=== PATIENT | male | born 1955 ===

== ENCOUNTER 2018-07-04 13:21 | Inpatient (IN) | payer BC, MEDICAID ==
--- NOTE | 2018-07-04 14:31 | ED PDOC ---
Arrival/HPI - General Chief Complaint: Flu-like Symptoms Time Seen by Provider: 07/04/18 14:20 Historian: Patient, Family - History of Present Illness Narrative History of Present Illness (Text): 07/04/18 14:30 63 year old Malaysian-speaking male, with past medical history of CVA, hypertension, diabetes, and bilateral AKA, presents to the Emergency department accompanied by family for evaluation of flu-like symptoms since 3 days. As per family, patient informs sore throat, cough, congestion and fever since 3 days. Patient had a Tmax of 101.2 last night and developed difficulty breathing secondary to congestion this morning, prompting him to present to the ED for medical evaluation. Patient denies any other associated somatic complaints. Patient denies any headache, dizziness, chest pain, dyspnea on exertion, abdominal pain, nausea, vomiting, diarrhea, back pain, neck pain, or any other complaints. Time/Duration: < week Symptom Onset: Gradual Symptom Course: Unchanged Activities at Onset: Light Context: Home Past Medical History - Provider Review Nursing Documentation Reviewed: Yes - Cardiac Hx Hypertension: Yes - Endocrine/Metabolic Hx Diabetes Mellitus Type 2: Yes - Psychiatric Hx Substance Use: No - Surgical History Other/Comment: B/L AKA - Anesthesia Hx Anesthesia: Yes Hx Anesthesia Reactions: No Hx Malignant Hyperthermia: No Family/Social History - Physician Review Nursing Documentation Reviewed: Yes Family/Social History: Unknown Family HX Smoking Status: Never Smoked Hx Alcohol Use: No Hx Substance Use: No Allergies/Home Meds Allergies/Adverse Reactions: Allergies No Known Allergies Allergy (Verified 07/04/18 14:04) Home Medications: Home Meds Medication Instructions Recorded Confirmed Aspirin [Aspirin EC] DAILY 07/04/18 Clonazepam [Klonopin] DAILY 07/04/18 Lisinopril [Zestril] DAILY 07/04/18 Metoprolol Succinate DAILY 07/04/18 metFORMIN [glucOPHAGE] BID 07/04/18 07/04/18 Review of Systems - Physician Review All systems were reviewed & negative as marked: Yes - Review of Systems Constitutional: Fevers Eyes: absent: Vision Changes ENT: Sore Throat Respiratory: Cough. absent: SOB Cardiovascular: absent: Chest Pain Gastrointestinal: absent: Abdominal Pain, Diarrhea, Nausea, Vomiting Genitourinary Male: absent: Dysuria, Urinary Output Changes Musculoskeletal: absent: Back Pain, Neck Pain Skin: absent: Rash Neurological: absent: Headache, Dizziness Physical Exam - Physical Exam Narrative Physical Exam (Text): 07/04/18 14:36 Gen: VS reviewed, alert, well developed, well nourished, nontoxic, mild distress. ENT: normal pharynx. Post nasal drip, boggy nasal remnants noted. Eye: EOMI, PERRL. Neck: no JVD, supple, no adenopathy. CV: regular rate, regular rhythm, no rubs, no murmur, no gallops, S1, S2, pulses equal and strong. Pulm: no distress, clear to auscultation, no wheeze, no rhonchi, breath sounds equal, no rales. Abd: soft, nontender, no guarding, no rebound, no rigidity, normal bowel sounds. Ext: Bilateral AKA. Skin: good color, no rash, no cyanosis. Psych: responds appropriately to questions, normal affect. Neuro: oriented x 3, CN2-12 intact grossly, motor intact, sensation intact. Vital Signs Reviewed: Yes Vital Signs Temp Pulse Resp BP Pulse Ox 07/04/18 14:07 97.3 F L 105 H 16 129/79 95 Temperature: Afebrile Blood Pressure: Normal Pulse: Tachycardic Respiratory Rate: Normal Appearance: Positive for: Well-Appearing, Non-Toxic, Comfortable Pain Distress: None Mental Status: Positive for: Alert and Oriented X 3 Medical Decision Making ED Course and Treatment: 07/04/18 14:37 Impression: 63 year old male presents to the Emergency department for evaluation of flu-like symptoms. Plan: -- Rapid Strep -- Rapid Influenza A/B -- Chest X-ray -- Reassess and disposition Prior Visits: Notes and results from previous visits were reviewed. Progress Notes: 07/04/18 16:56 Chest X-ray reviewed, shows: Impression: Intermittent findings proximal right humerus follow-up recommended. discussed with regarding incidental humerus finding, will refer to ortho.primarily patient was seen for uri symptoms, sore throat, fever, despite negative cxr i feel it is prudent to start empiric antibiotics. patient is nontoxic appearing and stable for dc. 07/04/18 17:50 at discharge, the patient's vitals noted to be febrile and tachycardic. further information provided by the family states that the patient will regularly hold his urine. the patient admit to some dysuria but no flank pain or hematuria. will extend workup to get cultures and admit. 07/04/18 17:[address] lima, patient to be admitted to rule out sepsis. 07/04/18 18:51 code sepsis called, patient with atypical presentation, found to have a high wbc and elevated lactic acid, patient empirically started on iv abx - RAD Interpretation Radiology Orders: 07/04/18 14:29 CXR [CHEST TWO VIEWS (PA/LAT)] [RAD] Stat - EKG Interpretation EKG Interpretation (Text): 07/04/18 17:03 1646: nsr at 100 bpm, rbbb, no ectopy, no acute sttw abn Interpreted by ED Physician: Yes Procedures - Time-Out Type of Procedure: venipuncture necessitiating physician skill - Additional Procedures Progress: 20 g iv was placed in the left AC, ultrasound guided, blood drawn by myself including cultures, good flush with sterile saline, tolerated procedure well. - Scribe Statement The provider has reviewed the documentation as recorded by the Scribe America Coreas. All medical record entries made by the Scribe were at my direction and personally dictated by me. I have reviewed the chart and agree that the record accurately reflects my personal performance of the history, physical exam, medical decision making, and the department course for this patient. I have also personally directed, reviewed, and agree with the discharge instructions and disposition. Disposition/Present on Arrival - Present on Arrival Any Indicators Present on Arrival: No History of DVT/PE: No History of Uncontrolled Diabetes: No Urinary Catheter: No History of Decub. Ulcer: No History Surgical Site Infection Following: None - Disposition Have Diagnosis and Disposition been Completed?: Yes Diagnosis: Upper respiratory infection Disposition: HOME/ ROUTINE Disposition Time: 16:57 Patient Plan: Discharge Patient Problems: Current Active Problems Problem Status Onset Upper respiratory infection Acute Condition: STABLE Discharge Instructions (ExitCare): Bacterial Upper Respiratory Infection, Adult Additional Instructions: Stay well hydrated (water). Return for any new or worsening symptoms. SHAHRZAD WERNER, thank you for letting us take care of you today. Your provider was Dr. Nicola Loving and you were treated for upper respiratory infection. The emergency medical care you received today was directed at your acute symptoms. If you were prescribed any medication, please fill it and take as directed. It may take several days for your symptoms to resolve. Return to the Emergency Department if your symptoms worsen, do not improve, or if you have any other problems. Please contact your doctor or call one of the physicians/clinics you have been referred to that are listed on the Patient Visit Information form that is included in your discharge packet. Bring any paperwork you were given at discharge with you along with any medications you are taking to your follow up visit. Our treatment cannot replace ongoing medical care by a primary care provider outside of the emergency department. Thank you for allowing the [facility] team to be part of your care today. If you had an X-Ray or CT scan: A Radiologist will review the ED reading if any change in treatment is needed we will contact you. If you had a blood, urine, or wound culture: It will take several days for the results, if any change in treatment is needed we will contact you. If you had an STI test: It will take 48 hours for the results. Please call after 1 week if you have not heard back. Prescriptions: Azithromycin 250 mg PO DAILY 4 Days #4 tablet Lisinopril [Zestril] 10 mg PO DAILY 30 Days #30 tablet Referrals: [facility] [Outside] - Follow up with primary Aaron Larsen DO [Staff Provider] - Follow up with primary Forms: [employer] (Turkmen)
--- NOTE | 2018-07-04 16:25 | RAD ---
Date of service: 07/04/2018 HISTORY: cough, pneumonia COMPARISON: No prior. TECHNIQUE: Chest PA and lateral FINDINGS: LUNGS: No active pulmonary disease. PLEURA: No significant pleural effusion identified. No pneumothorax apparent. CARDIOVASCULAR: No aortic atherosclerotic calcification present. Normal cardiac size. No pulmonary vascular congestion. OSSEOUS STRUCTURES: Incompletely visualize calcium/osseous matrix proximal right humerus. Findings are nonspecific may represent calcified matrix, chondroid lesion. Bony infarction could also assume this appearance. Further evaluation recommended as there are no prior studies. VISUALIZED UPPER ABDOMEN: Normal. OTHER FINDINGS: None. IMPRESSION: No active pulmonary disease. Intermittent findings proximal right humerus follow-up recommended.
[2018-07-04 18:37] LABS: BASO # 0.05 K/mm3 (0.0-2.0); BASO % 0.2 % (0.0-3.0); EOS # 0.1 (0.0-0.7); EOS % 0.3 % (1.5-5.0); GRAN # 15.75 (1.4-6.5); GRAN % 72.4 % (50.0-68.0); HEMOGLOBIN 12.1 g/dL (14.0-18.0); LYMPH % 18.5 % (22.0-35.0); MEAN CELL VOLUME 92.1 fl (80.0-105.0); MEAN CORPUSCULAR HGB CONC 32.6 g/dl (31.0-37.0); MEAN PLATELET VOLUME 10.5 fl (7.0-11.0); MONO # 1.9 (0.1-0.6); MONO % 8.6 % (1.0-6.0); RBC 4.03 10^6/uL (3.5-6.1); RED CELL DISTRIBUTION WIDTH 13.1 % (11.5-14.5); WHITE BLOOD COUNT 21.8 10^3/uL (4.5-11.0)
[2018-07-04 18:40] LABS: VENOUS BLOOD GAS BASE EXCESS 3.4 mmol/L (0.0-2.0); VENOUS BLOOD GAS PO2 37 mm/Hg (30-55); VENOUS BLOOD PH 7.38 (7.32-7.43)
[2018-07-04] MEDS ORDERED: Aztreonam 1 Gm in NS 100mL 100 ML IVPB STA (18:47)
[2018-07-04] MEDS ORDERED: Vancomycin 500 mg Inj IVPB STA (18:49)
[2018-07-04 18:52] LABS: ALB/GLOB RATIO 0.9 (1.1-1.8); ALBUMIN 4.3 g/dL (3.0-4.8); ALT/SGPT 25 U/L (7-56); AST/SGOT 22 U/L (17-59); BLOOD UREA NITROGEN 10 mg/dL (7-21); CALCIUM 9.6 mg/dL (8.4-10.5); GFR NON-AFRICAN AMERICAN > 60
--- NOTE | 2018-07-04 18:58 | CARD ---
APPROVED REPORT Date of service: 07/04/2018 EKG Measurement Heart [id number] <Conclusion> Normal sinus rhythm Right bundle branch block Left anterior fascicular block Bifascicular block Abnormal ECG
[2018-07-04 20:11] LABS: PH,URINE 6.5 (4.7-8.0); URINE BILIRUBIN NEGATIVE (NEGATIVE); URINE BLOOD NEGATIVE (NEGATIVE); URINE GLUCOSE (UA) NEGATIVE (NEGATIVE); URINE LEUKOCYTE ESTERASE NEGATIVE Leu/uL (NEGATIVE); URINE PROTEIN NEGATIVE mg/dL (<30 mg/dL); URINE UROBILINOGEN 0.2 E.U./dL (<1 E.U./dL)
[2018-07-04 20:12] LABS: URINE APPEARANCE CLEAR (CLEAR); URINE COLOR YELLOW (YELLOW)
--- NOTE | 2018-07-04 23:45 | HP ---
DATE OF EXAM: 07/04/2018 HISTORY OF PRESENT ILLNESS: I was called down to the emergency room to admit this nice Upper Sorbian-speaking man who has some dementia. I was supposed to do a house call on him, but he never made it. get there, he is having temperatures. He is having flu-like symptoms for 3 days, sore throat, cough, congestion, and fever. He has had 101.2 temperature at home. He is having difficulty breathing. He is seen in the ER, a little bit uncomfortable. 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 He is quite weak. He has hypertension, diabetes, peripheral vascular disease, bilateral lower extremity AKA, and anxiety. FAMILY HISTORY: Unknown family history. SOCIAL HISTORY: No smoking, no drinking, no drugs. ALLERGIES: MEDICATIONS: He is on aspirin, Klonopin, Zestril, metoprolol and Glucophage. REVIEW OF SYSTEMS: He is just very lethargic. He is having fevers. No acute vision or hearing changes. He has a sore throat. He has a cough. No shortness of breath. No chest pain. No abdominal pain, diarrhea, nausea, or vomiting. No problems urinating that he knows of. He cannot give a urine at this time. No back pain or neck pain. No rashes. No headache or dizziness. PHYSICAL EXAMINATION: VITAL SIGNS: He has a 97.3 at this time, it went up to 101.2; 105 pulse; 16 respiratory rate; 129/79 blood pressure; 95% O2 sat. GENERAL: He is well developed in bed, well nourished, little distressed. HEENT AND NECK: Throat is clear. Neck supple. Extraocular muscles intact. Pupils reactive to light. No JVD. HEART: Regular rate. Normal S1, S2. LUNGS: Decreased breath sounds, but clear to auscultation. No wheezing, no rhonchi, no rales. ABDOMEN: Soft, nontender. Positive bowel sounds. No guarding, no rebound, no CVA tenderness. EXTREMITIES: Bilateral AKA. SKIN: For the most part has fair turgor. No rashes or ulcers appreciated. NEUROLOGIC: He responds, normal affect, smiling, alert and oriented x3. Cranial nerves II-XII grossly intact. LYMPHS: Thyroid midline. No palpable appreciable lymphadenopathy. Interestingly, he now has a 101 temperature. LABORATORY DATA: He has a white count of 21,800, 12.1 hemoglobin, 37.1 hematocrit with 357 platelets. He has a negative influenza, negative for group A strep. I am waiting for the urine to come back. Also, I am waiting for the SMA-20 to come back. Chest x-ray was okay. He will be admitted into code sepsis right now. He will have blood cultures, urine cultures, and throat cultures drawn. He is going to have a consult Infectious Disease. I will put him on aztreonam, IV antibiotics. I will put him back on his metformin, his clonazepam, and his metoprolol. He will have oxygen and he is, I believe, septic at this time. I called the code sepsis in the ER. HE IS ALLERGIC TO PENICILLIN. We will see what Dr. Mancilla has to say about his elevated white count and temperature. He will be admitted. Rajendra Caraballo DO [facility]
[2018-07-05] MEDS: Vancomycin 1gm in NS 250ml 1 GM/250 ML BAG IVPB SCH ×3 (00:43→22:46)
[2018-07-05 01:13] LABS: VENOUS BLOOD GAS BASE EXCESS 1.7 mmol/L (0.0-2.0); VENOUS BLOOD GAS PO2 81 mm/Hg (30-55); VENOUS BLOOD PH 7.41 (7.32-7.43)
--- NOTE | 2018-07-05 01:50 | PCM.SEPTIC ---
Sepsis Progress Note - Reassessment Type Date of Evaluation: 07/05/18 Time of Evaluation: 00:12 Reassessment Type: Non-invasive reassessment - Non Invasive Reassessment Were the most recent vital sign reviewed: Yes Vital Sign (Latest): Temp Pulse Resp BP Pulse Ox 98.9 F 85 18 107/69 97 07/05/18 00:14 07/05/18 00:14 07/05/18 00:14 07/05/18 00:14 07/05/18 00:14 Cardiovascular: Yes: Regular Rate, Rhythm Respiratory: Yes: Normal Breath Sounds. No: Accessory Muscle Use, Respiratory Distress Capillary Refill: Normal (Less than 2 sec) Pulses: Normal Radial Skin: Normal Color, Warm
[2018-07-05 07:15] LABS: HEMOGLOBIN 10.8 g/dL (14.0-18.0); MEAN CELL VOLUME 91.2 fl (80.0-105.0); MEAN CORPUSCULAR HEMOGLOBIN 29.7 pg (25.0-35.0); MEAN CORPUSCULAR HGB CONC 32.5 g/dl (31.0-37.0); MEAN PLATELET VOLUME 10.3 fl (7.0-11.0); RBC 3.64 10^6/uL (3.5-6.1); RED CELL DISTRIBUTION WIDTH 13.3 % (11.5-14.5); WHITE BLOOD COUNT 18.6 10^3/uL (4.5-11.0)
[2018-07-05 07:38] LABS: ALB/GLOB RATIO 0.9 (1.1-1.8); ALBUMIN 3.7 g/dL (3.0-4.8); ALT/SGPT 25 U/L (7-56); AST/SGOT 17 U/L (17-59); BLOOD UREA NITROGEN 12 mg/dL (7-21); CALCIUM 8.8 mg/dL (8.4-10.5); GFR NON-AFRICAN AMERICAN > 60
--- NOTE | 2018-07-05 07:44 | CP.PCM.CON ---
<Jae Whatley - Last Filed: 07/05/18 11:10> History of Present Illness - History of Present Illness History of Present Illness: Infectious disease consult note for Dr. Mauro/Dr. Mancilla service - Jose Whatley PGY3 HPI: Patient is a 63yo male with past medical history of hypertension, dementia, DM type 2, CVA with expressive aphasia, peripheral vascular disease, bilateral AKA that presented to [facility] with report of fevers, chills, nasal congestion, sore throat and cough for several days prior to presentation. He also reportedly had some shortness of breath. He denied sick contacts, recent abx use or travel. Denies chest pain, palpitations, abdominal pain, nausea, vomi ting, dysuria, frequency, urgency. Infectious disease consulted for evaluation of possible sources of infection. 12point ROS as per above otherwise negative PMH: as stated above PSH: as stated above Allergies: penicillin Social Hx: Denies tobacco, alcohol and illicit drug use Family Hx: Noncontributory PMD: Dr. Caraballo Past Patient History - Past Social History Smoking Status: Never Smoked - CARDIAC Hx Hypertension: Yes - ENDOCRINE/METABOLIC Hx Diabetes Mellitus Type 2: Yes - PSYCHIATRIC Hx Substance Use: No - SURGICAL HISTORY Other/Comment: B/L AKA - ANESTHESIA Hx Anesthesia: Yes Hx Anesthesia Reactions: No Hx Malignant Hyperthermia: No Meds Home Medications: Home Medication List Medication Instructions Recorded Confirmed Type Azithromycin 250 mg PO DAILY 4 Days #4 tablet 07/04/18 Rx Allergies/Adverse Reactions: Allergies Allergy/AdvReac Type Severity Reaction Status Date / Time amoxicillin Allergy URTICARIA Verified 07/05/18 08:24 - Medications Medications: Current Medications Acetaminophen (Tylenol 325mg Tab) 650 mg PO Q4 PRN PRN Reason: Fever >100.4 F Stop: 07/07/18 12:00 Aspirin (Ecotrin) 81 mg PO DAILY [facility] Clonazepam (Klonopin) 0.5 mg PO DAILY [facility]; Protocol Vancomycin HCl (Vancomycin 1gm) 1 gm in 250 mls @ 167 mls/hr IVPB Q12H [facility]; Protocol Last Admin: 07/05/18 00:43 Dose: Not Given Lisinopril (Zestril) 10 mg PO DAILY [facility] Metformin HCl (Glucophage) 500 mg PO BID [facility] Metoprolol Succinate (Toprol Xl) 50 mg PO DAILY [facility] Oseltamivir Phosphate (Tamiflu Cap) 75 mg PO BID [facility]; Protocol Stop: 07/09/18 23:52 Last Admin: 07/05/18 05:37 Dose: Not Given Physical Exam - Constitutional Appears: No Acute Distress - Head Exam Head Exam: ATRAUMATIC, NORMAL INSPECTION, NORMOCEPHALIC - Eye Exam Eye Exam: EOMI, PERRL - ENT Exam ENT Exam: Mucous Membranes Moist - Respiratory Exam Respiratory Exam: absent: Rales, Rhonchi, Wheezes - Cardiovascular Exam Cardiovascular Exam: RRR, +S1, +S2. absent: Gallop, JVD, Rubs - GI/Abdominal Exam GI & Abdominal Exam: Normal Bowel Sounds, Soft. absent: Distended, Firm, Guarding, Rebound, Rigid, Tenderness - Extremities Exam Additional comments: bilateral AKA - Neurological Exam Neurological exam: Alert, Oriented x3 - Psychiatric Exam Psychiatric exam: Normal Affect, Normal Mood - Skin Skin Exam: Dry, Intact, Normal Color, Warm Results - Vital Signs Recent Vital Signs: Last Vital Signs Temp 98.9 F 07/05/18 00:14 Pulse 85 07/05/18 00:14 Resp 18 07/05/18 00:14 BP 107/69 07/05/18 00:14 Pulse Ox 97 07/05/18 00:14 - Labs Result Diagrams: 07/05/18 06:45 07/05/18 06:45 Labs: Laboratory Results - last 24 hr 07/04/18 07/04/18 07/04/18 14:50 14:54 18:00 WBC 21.8 H RBC 4.03 Hgb 12.1 L Hct 37.1 L MCV 92.1 MCH 30.0 MCHC 32.6 RDW 13.1 Plt Count 357 MPV 10.5 Gran % 72.4 H Lymph % (Auto) 18.5 L Hancock % (Auto) 8.6 H Eos % (Auto) 0.3 L Baso % (Auto) 0.2 Gran # 15.75 H Lymph # (Auto) 4.0 H Hancock # (Auto) 1.9 H Eos # (Auto) 0.1 Baso # (Auto) 0.05 pO2 VBG pH VBG pCO2 VBG HCO3 VBG Total CO2 VBG O2 Sat (Calc) VBG Base Excess VBG Potassium Sodium Chloride Glucose Lactate FiO2 Potassium Carbon Dioxide Anion Gap BUN Creatinine Est GFR ( Amer) Est GFR (Non-Af Amer) Random Glucose Calcium Total Bilirubin AST ALT Alkaline Phosphatase Total Protein Albumin Globulin Albumin/Globulin Ratio Venous Blood Potassium Urine Color Urine Appearance Urine pH Ur Specific Kenvil Urine Protein Urine Glucose (UA) Urine Ketones Urine Blood Urine Nitrate Urine Bilirubin Urine Urobilinogen Ur Leukocyte Esterase Influenza Typ A,B (EIA) Negative for flu a/b Grp A Beta Strep Ag Negative 07/04/18 07/04/18 07/04/18 18:00 18:00 19:59 WBC RBC Hgb Hct MCV MCH MCHC RDW Plt Count MPV Gran % Lymph % (Auto) Hancock % (Auto) Eos % (Auto) Baso % (Auto) Gran # Lymph # (Auto) Hancock # (Auto) Eos # (Auto) Baso # (Auto) pO2 37 VBG pH 7.38 VBG pCO2 50.0 VBG HCO3 29.6 H VBG Total CO2 31.1 H VBG O2 Sat (Calc) 72.0 H VBG Base Excess 3.4 H VBG Potassium 4.2 Sodium 137.0 137 Chloride 98.0 97 L Glucose 134 H Lactate 3.0 H FiO2 21.0 Potassium 4.2 Carbon Dioxide 27 Anion Gap 17 BUN 10 Creatinine 0.4 L Est GFR ( Amer) > 60 Est GFR (Non-Af Amer) > 60 Random Glucose 137 H Calcium 9.6 Total Bilirubin 0.5 AST 22 ALT 25 Alkaline Phosphatase 103 Total Protein 9.0 H Albumin 4.3 Globulin 4.6 Albumin/Globulin Ratio 0.9 L Venous Blood Potassium 4.2 Urine Color Yellow Urine Appearance Clear Urine pH 6.5 Ur Specific Kenvil 1.010 Urine Protein Negative Urine Glucose (UA) Negative Urine Ketones Negative Urine Blood Negative Urine Nitrate Negative Urine Bilirubin Negative Urine Urobilinogen 0.2 Ur Leukocyte Esterase Negative Influenza Typ A,B (EIA) Grp A Beta Strep Ag 07/05/18 07/05/18 01:00 06:45 WBC 18.6 H RBC 3.64 Hgb 10.8 L Hct 33.2 L MCV 91.2 MCH 29.7 MCHC 32.5 RDW 13.3 Plt Count 330 MPV 10.3 Gran % Lymph % (Auto) Hancock % (Auto) Eos % (Auto) Baso % (Auto) Gran # Lymph # (Auto) Hancock # (Auto) Eos # (Auto) Baso # (Auto) pO2 81 H VBG pH 7.41 VBG pCO2 42.0 VBG HCO3 26.6 VBG Total CO2 27.9 VBG O2 Sat (Calc) 96.7 H VBG Base Excess 1.7 VBG Potassium 3.9 Sodium 136.0 Chloride 103.0 Glucose 106 Lactate 0.9 FiO2 21.0 Potassium Carbon Dioxide Anion Gap BUN Creatinine Est GFR ( Amer) Est GFR (Non-Af Amer) Random Glucose Calcium Total Bilirubin AST ALT Alkaline Phosphatase Total Protein Albumin Globulin Albumin/Globulin Ratio Venous Blood Potassium 3.9 Urine Color Urine Appearance Urine pH Ur Specific Kenvil Urine Protein Urine Glucose (UA) Urine Ketones Urine Blood Urine Nitrate Urine Bilirubin Urine Urobilinogen Ur Leukocyte Esterase Influenza Typ A,B (EIA) Grp A Beta Strep Ag Assessment & Plan - Assessment and Plan (Free Text) Plan: 63yo male with history of htn, diabetes, PVD presents with severe sepsis with unclear etiology at the present time Severe sepsis without clear etiology at the present time normocytic anemia hx of dementia hx of CVA with expressive aphasia hx of PVD hx of HTN hx of DM hx of dementia Plan: -The patient has been started on vancomycin, azactam and tamiflu pending further workup -We have ordered a CT abd/pelvis to r/o intra-abdominal infection -Procalcitonin is pending -Blood, urine, throat cultures are pending -HIV 4th gen is pending given his age -Rapid flu and group A strep negative -EKG revealed normal sinus rhythm at 100bpm, qtc of 461 with bifascicular block -CXR revealed no active pulmonary disease -Urinalysis was negative Patient seen and case discussed/reviewed with attending, Dr. Mauro <Cristopher Mauro - Last Filed: 07/05/18 21:08> Meds - Medications Medications: Current Medications Acetaminophen (Tylenol 325mg Tab) 650 mg PO Q4 PRN PRN Reason: Fever >100.4 F Stop: 07/07/18 12:00 Aspirin (Ecotrin) 81 mg PO DAILY [facility] Last Admin: 07/05/18 10:40 Dose: 81 mg Clonazepam (Klonopin) 0.5 mg PO DAILY [facility]; Protocol Last Admin: 07/05/18 10:40 Dose: 0.5 mg Vancomycin HCl (Vancomycin 1gm) 1 gm in 250 mls @ 167 mls/hr IVPB Q12H [facility]; Protocol Last Admin: 07/05/18 10:47 Dose: 167 mls/hr Aztreonam (Azactam 1 Gm) 100 mls @ 100 mls/hr IVPB Q8 [facility]; Protocol Stop: 07/12/18 14:01 Last Admin: 07/05/18 13:45 Dose: 100 mls/hr Lisinopril (Zestril) 10 mg PO DAILY [facility] Last Admin: 07/05/18 10:41 Dose: 10 mg Metformin HCl (Glucophage) 500 mg PO BID [facility] Last Admin: 07/05/18 17:13 Dose: 500 mg Metoprolol Succinate (Toprol Xl) 50 mg PO DAILY [facility] Last Admin: 07/05/18 10:41 Dose: 50 mg Oseltamivir Phosphate (Tamiflu Cap) 75 mg PO BID [facility]; Protocol Stop: 07/09/18 23:52 Last Admin: 07/05/18 17:13 Dose: 75 mg Results - Vital Signs Recent Vital Signs: Last Vital Signs Temp 98.8 F 07/05/18 15:29 Pulse 74 07/05/18 15:29 Resp 18 07/05/18 15:29 BP 106/63 07/05/18 15:29 Pulse Ox 92 L 07/05/18 15:29 - Labs Result Diagrams: 07/05/18 06:45 07/05/18 06:45 Labs: Laboratory Results - last 24 hr 07/05/18 07/05/18 07/05/18 01:00 01:00 06:45 WBC 18.6 H RBC 3.64 Hgb 10.8 L Hct 33.2 L MCV 91.2 MCH 29.7 MCHC 32.5 RDW 13.3 Plt Count 330 MPV 10.3 pO2 81 H VBG pH 7.41 VBG pCO2 42.0 VBG HCO3 26.6 VBG Total CO2 27.9 VBG O2 Sat (Calc) 96.7 H VBG Base Excess 1.7 VBG Potassium 3.9 Sodium 136.0 Chloride 103.0 Glucose 106 Lactate 0.9 FiO2 21.0 Potassium Carbon Dioxide Anion Gap BUN Creatinine Est GFR ( Amer) Est GFR (Non-Af Amer) POC Glucose (mg/dL) Random Glucose Calcium Total Bilirubin AST ALT Alkaline Phosphatase Total Protein Albumin Globulin Albumin/Globulin Ratio Procalcitonin 0.17 L Venous Blood Potassium 3.9 07/05/18 07/05/18 06:45 10:37 WBC RBC Hgb Hct MCV MCH MCHC RDW Plt Count MPV pO2 VBG pH VBG pCO2 VBG HCO3 VBG Total CO2 VBG O2 Sat (Calc) VBG Base Excess VBG Potassium Sodium 140 Chloride 104 Glucose Lactate FiO2 Potassium 4.0 Carbon Dioxide 27 Anion Gap 12 BUN 12 Creatinine 0.5 L Est GFR ( Amer) > 60 Est GFR (Non-Af Amer) > 60 POC Glucose (mg/dL) 133 H Random Glucose 110 Calcium 8.8 Total Bilirubin 0.4 AST 17 D ALT 25 Alkaline Phosphatase 89 Total Protein 7.6 Albumin 3.7 Globulin 3.9 Albumin/Globulin Ratio 0.9 L Procalcitonin Venous Blood Potassium Assessment & Plan - Assessment and Plan (Free Text) Plan: Infectious diseases Attending Physician Attestation Patient seen and examined, discussed with esthetician and manager medical spa. I have reviewed the patient's history of present illness, past medical, social, personal and family histories, pertinent physical exam findings, course so far in this hospital adm ission, pertinent laboratory and imaging results. I agree with the above findings, assessment and plan. In addition, we have started Tamiflu as well as Vancomcin and Azactam for SIRS, R/O sepsis from upper respiratory tract infection, R/O intra-abdominal infection. Follow up blood cx, CT scan of the abdomen and pelvis. Reviewed CXR which is negative. Will monitor clinically. Will also get HIV test.
[2018-07-05] MEDS ORDERED: Influenza Vaccine 60 mcg/0.5 mL SYR (4YR UP) IM ONE (08:30)
[2018-07-05] MEDS ORDERED: Pneumococcal 23-Valent Vaccine IM ONE (08:30)
[2018-07-05] MEDS: Metoprolol Succinate 50 mg XL Tab PO SCH (10:41)
[2018-07-05] MEDS ORDERED: Barium Sulfate Susp 2.1% w/v, 2.0% w/w 450 mL Bottle PO ONE (12:29)
[2018-07-05] MEDS: Aztreonam 1 Gm in NS 100mL 100 ML IVPB SCH ×2 (13:45→21:35)
--- NOTE | 2018-07-05 15:58 | PN ---
DATE: 07/05/2018 SUBJECTIVE: I saw him last night in emergency room, I saw him this morning. He is alert, pleasantly confused at his baseline. He is smiling. He is on aztreonam, he is on aspirin, he is on metformin, Klonopin metoprolol, Tylenol, vancomycin, lisinopril. OBJECTIVE: VITAL SIGNS: He has a 98.9 temp, it was as high as 102.3 last night, 85 pulse, 107/69 blood pressure, 18 respiratory rate, 97% O2 sat on room air. HEENT: Head is atraumatic, normocephalic. HEART: Regular rate. LUNGS: Decreased breath sounds, but clear. ABDOMEN: Soft. He has a bilateral AKA. LABORATORY DATA: He has 18.6 white count; is coming down from 21.8, hemoglobin 10.8, hematocrit 33.2, platelets of 330. Lactate was as high as 3, down to 0.9. He has a 140 sodium, potassium 4, BUN is 12, creatinine 0.5, GFR is greater than 60, sugar is 110, calcium is 8.8, total bili is 0.4, AST is 17, ALT is 25, alk phos 39, total protein 7.6, albumin 3.7. Urine was clean. Negative for group A beta strep and influenza is also negative. ASSESSMENT AND PLAN: He came in code sepsis. He had multiple consults with Infectious Disease. He is on intravenous antibiotics. We are checking on his labs. His cultures are pending. Continue aggressive treatment and care. Rajendra Caraballo DO MTDD
--- NOTE | 2018-07-05 18:39 | CT ---
Date of service: 07/05/2018 PROCEDURE: CT Abdomen and Pelvis with Oral contrast. HISTORY: r/o intra-abdominal infection COMPARISON: None. TECHNIQUE: Contiguous axial images of the abdomen and pelvis. Oral contrast was administered. No IV contrast given. Coronal and Sagittal reformats generated. Radiation dose: Total exam DLP = 424.99 mGy-cm. This CT exam was performed using one or more of the following dose reduction techniques: Automated exposure control, adjustment of the mA and/or kV according to patient size, and/or use of iterative reconstruction technique. FINDINGS: LOWER THORAX: There is a small right pleural effusion. LIVER: Unremarkable. No gross lesion or ductal dilatation. GALLBLADDER AND BILE DUCTS: Unremarkable. PANCREAS: Unremarkable. No mass. No ductal dilatation. SPLEEN: Unremarkable. No splenomegaly. ADRENALS: Unremarkable. KIDNEYS AND URETERS: Unremarkable. No stone or hydronephrosis. BLADDER: The urinary bladder is mildly distended demonstrate mild wall thickening. REPRODUCTIVE: The prostate is moderately enlarged. APPENDIX: No evidence of acute appendicitis. BOWEL: Unremarkable. No obstruction. No gross mural thickening. PERITONEUM: Unremarkable. No fluid collection. No free air. LYMPH NODES: Unremarkable. No enlarged lymph nodes. VASCULATURE: Unremarkable. No aortic aneurysm. No aortic atherosclerotic calcification or mural plaque present. BONES: No fracture or destructive lesion. OTHER FINDINGS: None. IMPRESSION: Suboptimal evaluation without IV contrast administration. No CT evidence of acute cholecystitis or appendicitis. Mild constipation. Moderately enlarged prostate. Mild urinary bladder wall thickening. Small right pleural effusion.
[2018-07-06] MEDS: Aztreonam 1 Gm in NS 100mL 100 ML IVPB SCH ×3 (05:13→22:28)
[2018-07-06 06:34] LABS: HEMOGLOBIN 10.8 g/dL (14.0-18.0); MEAN CORPUSCULAR HEMOGLOBIN 29.7 pg (25.0-35.0); MEAN CORPUSCULAR HGB CONC 32.2 g/dl (31.0-37.0); MEAN PLATELET VOLUME 10.6 fl (7.0-11.0); RBC 3.64 10^6/uL (3.5-6.1); RED CELL DISTRIBUTION WIDTH 13.2 % (11.5-14.5); WHITE BLOOD COUNT 13.7 10^3/uL (4.5-11.0)
[2018-07-06 07:12] LABS: ALB/GLOB RATIO 0.9 (1.1-1.8); ALBUMIN 3.6 g/dL (3.0-4.8); ALT/SGPT 27 U/L (7-56); AST/SGOT 23 U/L (17-59); BLOOD UREA NITROGEN 10 mg/dL (7-21); CALCIUM 8.7 mg/dL (8.4-10.5); GFR NON-AFRICAN AMERICAN > 60
[2018-07-06] MEDS: Metoprolol Succinate 50 mg XL Tab PO SCH (10:20)
[2018-07-06] MEDS: Vancomycin 1gm in NS 250ml 1 GM/250 ML BAG IVPB SCH (10:20)
--- NOTE | 2018-07-06 11:02 | PN ---
DATE: 07/06/2018 SUBJECTIVE: The patient is in bed in no acute distress, nontoxic. PHYSICAL EXAMINATION: VITAL SIGNS: Temperature is 98, T-max was 102.3 on 07/04/2018, blood pressure is 124/60, respiratory rate of 20, heart rate of 70. HEENT: Unremarkable. NECK: Supple. LUNGS: Have decreased breath sounds. HEART: Normal S1, S2. ABDOMEN: Soft, nontender. LABORATORY EXAMINATION: Reveals the patient's white count is down to 13,700, hemoglobin is 10, platelets of 369. BUN of 10, creatinine of 0.9. Urinalysis is noted and serology is noted. Microbiology reveals the blood cultures are no growth, throat cultures are no growth and review of orders reveals the patient is on aztreonam, vancomycin, and Tamiflu. The patient also had a CAT scan of the abdomen and pelvis, which was reported with no CAT scan evidence of acute cholecystitis or appendicitis, mild constipation, enlarged prostate, urinary bladder wall thickening, small right pleural effusion. Essentially an unremarkable CAT scan of the abdomen and pelvis. The patient also had a negative chest x-ray. No active pulmonary disease. On the CAT scan of the abdomen and pelvis, lower thorax is unremarkable except for right pleural effusion which is small, an unremarkable pancreas, gallbladder and liver and adrenal glands and kidneys with a negative urinalysis, negative influenza. ASSESSMENT AND PLAN: This is a 63-year-old male who was seen early this morning in 564, bed 1. He has history of dementia, diabetes, cerebrovascular accident, hypertension, peripheral vascular disease, bilateral [id number] amputation with fevers and chills and congestions and cough and it appeared comfortable, admitted with leukocytosis and fever with systemic inflammatory response syndrome. Source of the fever not quite clear at this time on vancomycin, Azactam, Tamiflu. We will check on the final culture results and follow the fever thus far. Blood cultures are negative at 24 hours. The patient is doing well. He seems he have responded to the antibiotics, although the source of the fever and and systemic inflammatory response syndrome is not clear. We may consider a CT of the chest. We will order a CT of the chest. We will order an human immunodeficiency virus test has been ordered. We will follow with you. Of note, the patient's procalcitonin is reported to be normal. THE PATIENT IS ALLERGIC TO AMOXICILLIN. We will follow with you. Cuauhtemoc Mancilla MD
--- NOTE | 2018-07-06 11:45 | CT ---
Date of service: 07/06/2018 PROCEDURE: CT Chest without contrast HISTORY: fever COMPARISON: None available. TECHNIQUE: Contiguous axial images were obtained through the chest without intravenous contrast enhancement. Sagittal and coronal reconstructions were performed. Radiation dose: Total exam DLP = 254.34 mGy-cm. This CT exam was performed using one or more of the following dose reduction techniques: Automated exposure control, adjustment of the mA and/or kV according to patient size, and/or use of iterative reconstruction technique. FINDINGS: LUNGS: Moderate-size ground-glass density infiltrate in the right upper lobe. MEDIASTINUM: Unremarkable thoracic aorta. No aneurysm. Normal sized heart. Main pulmonary artery unremarkable. No vascular congestion. No lymphadenopathy. Aortic calcifications. PLEURA: Moderate-size right pleural effusion. BONES: No fracture. No destructive lesion. UPPER ABDOMEN: Grossly unremarkable. OTHER FINDINGS: None. IMPRESSION: Moderate-size ground-glass density infiltrate in the right upper lobe. Moderate right pleural effusion.
--- NOTE | 2018-07-06 11:57 | PN ---
DATE: 07/06/2018 SUBJECTIVE: I saw him resting comfortably in bed. He is alert. He tells me he is hungry in his own way. He is found to have a broken Latvian, but he smiled at me. No acute distress. OBJECTIVE: Clinically, he has a 98.1 temperature, 77 pulse, 103/61 blood pressure, 18 respiratory rate, 95% O2 sat on room air. HEENT: Head is atraumatic, normocephalic. Throat is moist. NECK: Supple. HEART: Regular rate. LUNGS: Decreased breath sounds but clear. ABDOMEN: Soft. EXTREMITIES: Bilateral AKA. LABORATORY DATA: He has a 13.7 white count the best it has been was 21 and [address] nicely. Hemoglobin is 10.8, hematocrit 33.5, platelets are 369. He has 140 sodium, potassium 4.1, BUN 10, creatinine 0.5, GFR is greater than 60, sugar is 103, calcium is 8.7, total bili is 0.3, AST 23, ALT is 27, alk phos 88, total protein 7.4. Urine was clean. The patient is being seen by Infectious Disease on IV antibiotics. The patient had a CT scan of the abdomen and pelvis which showed suboptimal evaluation evidence, no CT evidence of acute cholecystectomy, no appendicitis, mild constipation, moderate large prostate, mild urinary bladder wall thickening, small right pleural effusion, nothing to specific but I was impressed with the white count coming down on the medications which is aztreonam, Ecotrin, Glucophage, Klonopin, Tamiflu, Toprol, Tylenol, vancomycin, and Zestril. We will continue aggressive treatment as per Infectious Disease. Check her labs tomorrow and see her for a sepsis picture. He was a code sepsis in the emergency room, septic bilateral AKA. Rajendra Caraballo DO
[2018-07-07] MEDS: Vancomycin 1gm in NS 250ml 1 GM/250 ML BAG IVPB SCH ×3 (00:03→23:13)
[2018-07-07] MEDS: Aztreonam 1 Gm in NS 100mL 100 ML IVPB SCH ×3 (06:56→21:08)
[2018-07-07 08:36] LABS: HEMOGLOBIN 10.8 g/dL (14.0-18.0); MEAN CELL VOLUME 91.8 fl (80.0-105.0); MEAN CORPUSCULAR HEMOGLOBIN 29.6 pg (25.0-35.0); MEAN CORPUSCULAR HGB CONC 32.2 g/dl (31.0-37.0); MEAN PLATELET VOLUME 10.1 fl (7.0-11.0); RBC 3.65 10^6/uL (3.5-6.1); RED CELL DISTRIBUTION WIDTH 12.8 % (11.5-14.5); WHITE BLOOD COUNT 12.1 10^3/uL (4.5-11.0)
[2018-07-07 08:54] LABS: ALB/GLOB RATIO 0.9 (1.1-1.8); ALBUMIN 3.9 g/dL (3.0-4.8); ALT/SGPT 26 U/L (7-56); AST/SGOT 31 U/L (17-59); BLOOD UREA NITROGEN 12 mg/dL (7-21); CALCIUM 9.1 mg/dL (8.4-10.5); GFR NON-AFRICAN AMERICAN > 60
[2018-07-07] MEDS: Metoprolol Succinate 50 mg XL Tab PO SCH (09:30)
[2018-07-07] MEDS ORDERED: Albuterol-Ipratrop 3 mg / 0.5 (3 ml) UD IH PRN (10:28)
--- NOTE | 2018-07-07 11:36 | PN ---
DATE: 07/07/2018 SUBJECTIVE: He is resting comfortably in bed. He is eating better. He is clinically improving. He had code sepsis. He had inflammation. Bilateral AKA history. MEDICATIONS: He is on Azactam, Ecotrin, Glucophage, Klonopin, Tamiflu, Toprol, Tylenol, vancomycin, and Zestril. PHYSICAL EXAMINATION: GENERAL: He is alert, looking at me, calm, in bed, smiling, ate his breakfast. VITAL SIGNS: Temperature 98.3 temperature, 66 pulse, 129/70 blood pressure, 18 respiratory rate, 95% O2 sat. HEENT: Head: Atraumatic, normocephalic. HEART: Regular rate. LUNGS: Decreased breath sounds but clear. ABDOMEN: Soft. EXTREMITIES: Bilateral AKA. LABORATORY DATA: He has a 12.1 white count coming down nicely, 10.8 hemoglobin, 33.5 hematocrit, 294 platelets. He needs the antibiotics a few more days. Sodium 140, potassium 4.3, BUN 12, creatinine 0.5, GFR greater than 60, sugar is 121, calcium 9.1. Total bili is 0.4, AST is 31, ALT is 26, alk phos 87, total protein is 8. Urine is clean. He is here for a sepsis picture. ASSESSMENT AND PLAN: The white count is coming down nicely. He had a CT scan of the chest which showed moderate size ground-glass density infiltrate in the right upper lobe. She was in December with a right upper lobe pneumonia also and clinically is improving with the white count decreasing. We check his labs tomorrow. Continue with aggressive treatment and care with intravenous antibiotics and will call in Pulmonary. Rajendra Caraballo DO
[2018-07-07] MEDS: Albuterol-Ipratrop 3 mg / 0.5 (3 ml) UD IH SCH ×2 (13:20→18:59)
--- NOTE | 2018-07-07 20:26 | CON ---
PULMONARY CONSULTATION DATE OF CONSULTATION: 07/07/2018 REFERRING PHYSICIAN: Rajendra Caraballo DO REASON FOR CONSULTATION: Pneumonia. History is obtained via extensive discussion with the nurse. I have also reviewed the chart at length. I have also discussed the case with the patient at length. HISTORY OF PRESENT ILLNESS: The patient is a chronically ill 63-year-old male, with past medical history significant for cerebrovascular accident, hypertension, diabetes mellitus, bilateral [id number] amputations, who presented to [facility] - originally on 07/04/2018 - with a 3-day history of worsening shortness of breath, cough, and congestion. There is no history of significant sputum production. There is no history of chest pain, coughing up of blood, or chest pain - brought on by deep respirations. The patient did present with fevers. The fevers have now resolved. No history of chills or infectious exposure. No history of night sweats, weight loss, or appetite change prior to the above events. No history of syncope or diaphoresis. No history of recent travel or trauma. FAMILY HISTORY: No inheritable diseases. SOCIAL HISTORY: Positive for tobacco and negative for alcohol. HOME MEDICATIONS: Metoprolol, Zestril, Klonopin, aspirin, Glucophage, and azithromycin. ALLERGIES: AMOXICILLIN. REVIEW OF SYSTEMS: No history of nausea, vomiting, or diarrhea. No acute urinary symptoms. No new musculoskeletal complaints. Rest of the review of systems is negative. PHYSICAL EXAMINATION: GENERAL: The patient appears comfortable this morning. He is not short of breath at rest. He is not using accessory muscles for breathing. VITAL SIGNS: Temperature is 98.1, pulse is 77, respirations 18, blood pressure 103/61. Oxygen saturation on room air is 95-98%. HEENT: Normocephalic, atraumatic. No JVD. CARDIOVASCULAR: Positive S1, S2. No S3 gallop. LUNGS: Decreased breath sounds at the bases. Mild bilateral rhonchi. No wheezing. GI: Abdomen is soft, nontender, nondistended. Bowel sounds are positive. EXTREMITIES: The patient is status post bilateral [id number] amputations. SKIN: No acute rash. NEUROLOGIC EXAM: Limited at the present time. PERTINENT LABORATORY DATA: CAT scan of the chest was done yesterday and reviewed. There is a small patchy infiltrate noted in the right upper lobe. There is also a small right pleural effusion. There is no lymphadenopathy. CBC: White count 12.1K, hemoglobin 10.8, hematocrit 33.5, platelets of 394,000. Initial white count 21.8 thousand. Complete Metabolic Profile: Glucose 121. All other values are within normal limits. IMPRESSION: 1. Right upper lobe pneumonia. 2. Acute bronchitis. 3. Sepsis syndrome. 4. Anemia. PLAN: Again, I did discuss the case with the nurse at length. I have also reviewed the chart at length, and discussed the case with the patient at length. The patient presented to [facility] - originally on 07/04/2018 - with a 3-day history of worsening pulmonary symptoms and fever. As above, I did review the CAT scan of the chest. There is a small patchy infiltrate noted in the right upper lobe. There is also a small right pleural effusion. I would continue with the antibiotic coverage as per Infectious Disease. I did discuss the case with Dr. Mauro today. Temperatures have now fully resolved. The leukocytosis is also resolving. On physical exam, there is mild bronchospasm noted. However, there is no significant alveolar-arterial gradient. I will start the patient on DuoNeb treatments this morning. Clinical status of the patient appears significantly improved - compared to his initial presentation. However, given the above, the overall status/prognosis for this patient does remain guarded. I will discuss the above with Dr. Caraballo. Thank you very much for this pulmonary consultation. Dutch Mendoza MD MTDVero
[2018-07-08] MEDS: Albuterol-Ipratrop 3 mg / 0.5 (3 ml) UD IH SCH ×4 (02:30→19:26)
[2018-07-08] MEDS: Aztreonam 1 Gm in NS 100mL 100 ML IVPB SCH ×3 (05:35→21:01)
[2018-07-08 06:50] LABS: MEAN CELL VOLUME 91.9 fl (80.0-105.0); MEAN CORPUSCULAR HEMOGLOBIN 29.1 pg (25.0-35.0); MEAN CORPUSCULAR HGB CONC 31.6 g/dl (31.0-37.0); MEAN PLATELET VOLUME 10.1 fl (7.0-11.0); RBC 3.44 10^6/uL (3.5-6.1); RED CELL DISTRIBUTION WIDTH 12.9 % (11.5-14.5); WHITE BLOOD COUNT 10.4 10^3/uL (4.5-11.0)
[2018-07-08 06:57] LABS: ALB/GLOB RATIO 1.1 (1.1-1.8); ALBUMIN 3.8 g/dL (3.0-4.8); ALT/SGPT 29 U/L (7-56); AST/SGOT 36 U/L (17-59); BLOOD UREA NITROGEN 11 mg/dL (7-21); CALCIUM 8.9 mg/dL (8.4-10.5); GFR NON-AFRICAN AMERICAN > 60
--- NOTE | 2018-07-08 10:02 | CP.PCM.PN ---
Subjective - Date & Time of Evaluation Date of Evaluation: 07/08/18 Time of Evaluation: 09:20 - Subjective Subjective: No fevers, comfortable in bed, no SOB at rest, no cough currently, no diarrhea. Objective - Vital Signs/Intake and Output Vital Signs (last 24 hours): Temp Pulse Resp BP Pulse Ox 97.9 F 63 18 134/74 96 07/08/18 07:00 07/08/18 07:00 07/08/18 07:00 07/08/18 07:00 07/08/18 07:00 Intake and Output: 07/08/18 07/08/18 06:59 18:59 Intake Total 240 Output Total 300 Balance -60 - Medications Medications: Current Medications Albuterol/Ipratropium (Duoneb 3 Mg/0.5 Mg (3 Ml) Ud) 3 ml IH [id number] [facility] Last Admin: 07/08/18 07:51 Dose: 3 ml Albuterol/Ipratropium (Duoneb 3 Mg/0.5 Mg (3 Ml) Ud) 3 ml IH Q2H PRN PRN Reason: Shortness of Breath Aspirin (Ecotrin) 81 mg PO DAILY [facility] Last Admin: 07/07/18 09:30 Dose: 81 mg Clonazepam (Klonopin) 0.5 mg PO DAILY [facility]; Protocol Last Admin: 07/07/18 09:30 Dose: 0.5 mg Aztreonam (Azactam 1 Gm) 100 mls @ 100 mls/hr IVPB Q8 [facility]; Protocol Stop: 07/12/18 14:01 Last Admin: 07/08/18 05:35 Dose: 100 mls/hr Vancomycin HCl (Vancomycin 1gm) 1 gm in 250 mls @ 167 mls/hr IVPB Q12H [facility]; Protocol Lisinopril (Zestril) 10 mg PO DAILY [facility] Last Admin: 07/07/18 09:31 Dose: 10 mg Metformin HCl (Glucophage) 500 mg PO BID [facility] Last Admin: 07/07/18 16:42 Dose: 500 mg Metoprolol Succinate (Toprol Xl) 50 mg PO DAILY [facility] Last Admin: 07/07/18 09:30 Dose: 50 mg Oseltamivir Phosphate (Tamiflu Cap) 75 mg PO BID [facility]; Protocol Stop: 07/09/18 23:52 Last Admin: 07/07/18 16:42 Dose: 75 mg - Labs Labs: 07/08/18 06:30 07/08/18 06:30 - Constitutional Appears: Chronically Ill - Head Exam Head Exam: NORMAL INSPECTION - Neck Exam Neck Exam: absent: Meningismus - Respiratory Exam Respiratory Exam: Decreased Breath Sounds - Cardiovascular Exam Cardiovascular Exam: +S1, +S2 - GI/Abdominal Exam GI & Abdominal Exam: Soft. 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 Mendoza previously
[2018-07-08] MEDS: Metoprolol Succinate 50 mg XL Tab PO SCH (10:07)
[2018-07-08] MEDS: Vancomycin 1gm in NS 250ml 1 GM/250 ML BAG IVPB SCH ×2 (10:10→21:01)
--- NOTE | 2018-07-08 12:13 | PN ---
DATE: 07/08/2018 SUBJECTIVE: The patient was seen and examined at bedside. He is receiving antibiotics, vancomycin and Azactam. He is also on Tamiflu. PHYSICAL EXAMINATION: GENERAL: He is awake, alert, in no acute distress. VITAL SIGNS: Temperature is 97.9, pulse 63, respirations 18, pulse oximetry is 96% on room air. HEENT: Head, ears, nose, and throat are within normal limits. NECK: Supple with no jugular vein distention. CARDIOVASCULAR: S1 and S2. No S3. regular. PULMONARY: Slightly diminished breath sounds at both bases with no rhonchi, rales, or wheezing. GASTROINTESTINAL: Soft, nontender. No organomegaly. EXTREMITIES: No pedal edema. No cyanosis. NEUROLOGIC: Limited at the present time, SKIN: No acute skin rash. LABORATORY DATA: Reviewed. His chemistries are completely within normal limits. His WBC is 10.4 and hemoglobin 10. ASSESSMENT: 1. Sepsis syndrome. 2. Right upper lobe pneumonia. 3. Acute bronchitis. 4. Mild anemia. PLAN: The patient was originally admitted with a history of fever and cough. There is a small patchy area of infiltrate in the upper lobe on the CT scan. He is on good antibiotic coverage. His leukocytosis has resolved. We will continue with DuoNeb administration and follow closely. Jose Ramon Turk MD
--- NOTE | 2018-07-08 13:17 | PN ---
DATE: 07/08/2018 SUBJECTIVE: I saw Naif resting comfortably in bed. He fed himself this morning. He is talking, smiling, in good spirits. No acute distress at this time. PHYSICAL EXAMINATION: VITAL SIGNS: Temperature 97.9, 63 pulse, 134/74 blood pressure, 18 respiratory rate, 96% O2 sat on room air. HEENT: His head is atraumatic, normocephalic. He is smiling. Throat is moist. NECK: Supple. HEART: Regular rate. LUNGS: Decreased breath sounds but clear. ABDOMEN: Soft, nontender. Positive bowel sounds. EXTREMITIES: With bilateral AKA. MEDICATIONS: He is currently on Azactam, DuoNebs, Ecotrin, Glucophage, Klonopin, Tamiflu, Toprol, vancomycin and Zestril. LABORATORY DATA: Sodium 141, potassium 4, BUN is 11, creatinine 0.4, GFR is greater than 60, sugar is 107, calcium 8.9, total bili is 0.3, AST is 36, ALT is 29, alk phos 75, total protein 7.5. White count 10.4, best it has been, hemoglobin 10, hematocrit 31.6, platelets 307. ASSESSMENT AND PLAN: Definitely improving as per Infectious Disease. May be in a day or two of IV antibiotics, possibly discharge on Tuesday possibly. He is definitely improving. Continue aggressive treatment and care. Rajendra Caraballo DO
[2018-07-09] MEDS: Albuterol-Ipratrop 3 mg / 0.5 (3 ml) UD IH SCH ×4 (01:02→19:19)
[2018-07-09] MEDS: Aztreonam 1 Gm in NS 100mL 100 ML IVPB SCH ×3 (05:31→21:19)
[2018-07-09 07:20] LABS: HEMOGLOBIN 10.2 g/dL (14.0-18.0); MEAN CORPUSCULAR HEMOGLOBIN 29.2 pg (25.0-35.0); MEAN CORPUSCULAR HGB CONC 31.8 g/dl (31.0-37.0); MEAN PLATELET VOLUME 10.5 fl (7.0-11.0); RBC 3.49 10^6/uL (3.5-6.1); RED CELL DISTRIBUTION WIDTH 13.2 % (11.5-14.5); WHITE BLOOD COUNT 10.8 10^3/uL (4.5-11.0)
[2018-07-09 07:57] LABS: ALB/GLOB RATIO 0.9 (1.1-1.8); ALBUMIN 3.6 g/dL (3.0-4.8); ALT/SGPT 41 U/L (7-56); AST/SGOT 45 U/L (17-59); BLOOD UREA NITROGEN 15 mg/dL (7-21); GFR NON-AFRICAN AMERICAN > 60
[2018-07-09] MEDS: Metoprolol Succinate 50 mg XL Tab PO SCH (10:30)
[2018-07-09] MEDS: Vancomycin 1gm in NS 250ml 1 GM/250 ML BAG IVPB SCH ×2 (10:33→21:20)
--- NOTE | 2018-07-09 11:42 | PN ---
DATE: 07/09/2018 SUBJECTIVE: I saw him resting comfortably in bed. He is alert. He is smiling. He is on IV antibiotics. He is on aztreonam, DuoNebs, aspirin, Glucophage, Klonopin, Tamiflu, Toprol, vancomycin and Zestril. He is smiling, presently confused. He says one word which is not intelligible. OBJECTIVE: VITAL SIGNS: He has 98.5 temperature, 68 pulse, 136/77 blood pressure, 19 respiratory rate and 94% sat on room air. HEENT: Head is atraumatic, normocephalic. He is smiling. Throat is moist. NECK: Supple. HEART: Regular rate. LUNGS: Decreased breath sounds but clear. ABDOMEN: Soft. EXTREMITIES: With bilateral AKA. LABORATORY DATA: He has a 139 sodium, potassium 4.2, BUN is 50, creatinine 0.5, GFR is greater than 60, sugar is 99, calcium is 9, total bili is 0.3, AST is 45, ALT is 41, alk phos 73, total protein 7.5. White count is 10.8, hemoglobin 10.2, hematocrit 32.1, platelets 403. He is definitely improving and antibiotics as per Infectious Disease. I believe tomorrow is his last day and hopefully we can discharge him tomorrow to home, we will check his labs tomorrow. He did very well. Continue aggressive treatment and care as per Pulmonary, Infectious Disease. The patient had a sepsis, right lobe pneumonia Rajendra Caraballo DO
--- NOTE | 2018-07-09 17:18 | CP.PCM.PN ---
Subjective - Date & Time of Evaluation Date of Evaluation: 07/09/18 Time of Evaluation: 10:35 - Subjective Subjective: Comfortable in bed, no fevers. Objective - Vital Signs/Intake and Output Vital Signs (last 24 hours): Temp Pulse Resp BP Pulse Ox 97.9 F 63 18 134/74 96 07/08/18 07:00 07/08/18 07:00 07/08/18 07:00 07/08/18 07:00 07/08/18 07:00 Intake and Output: 07/08/18 07/08/18 06:59 18:59 Intake Total 240 Output Total 300 Balance -60 - Medications Medications: Current Medications Albuterol/Ipratropium (Duoneb 3 Mg/0.5 Mg (3 Ml) Ud) 3 ml IH [id number] [facility] Last Admin: 07/08/18 07:51 Dose: 3 ml Albuterol/Ipratropium (Duoneb 3 Mg/0.5 Mg (3 Ml) Ud) 3 ml IH Q2H PRN PRN Reason: Shortness of Breath Aspirin (Ecotrin) 81 mg PO DAILY [facility] Last Admin: 07/07/18 09:30 Dose: 81 mg Clonazepam (Klonopin) 0.5 mg PO DAILY [facility]; Protocol Last Admin: 07/07/18 09:30 Dose: 0.5 mg Aztreonam (Azactam 1 Gm) 100 mls @ 100 mls/hr IVPB Q8 [facility]; Protocol Stop: 07/12/18 14:01 Last Admin: 07/08/18 05:35 Dose: 100 mls/hr Vancomycin HCl (Vancomycin 1gm) 1 gm in 250 mls @ 167 mls/hr IVPB Q12H [facility]; Protocol Lisinopril (Zestril) 10 mg PO DAILY [facility] Last Admin: 07/07/18 09:31 Dose: 10 mg Metformin HCl (Glucophage) 500 mg PO BID [facility] Last Admin: 07/07/18 16:42 Dose: 500 mg Metoprolol Succinate (Toprol Xl) 50 mg PO DAILY [facility] Last Admin: 07/07/18 09:30 Dose: 50 mg Oseltamivir Phosphate (Tamiflu Cap) 75 mg PO BID [facility]; Protocol Stop: 07/09/18 23:52 Last Admin: 07/07/18 16:42 Dose: 75 mg - Labs Labs: 07/08/18 06:30 12/15/18 06:30 - Constitutional Appears: Chronically Ill - Head Exam Head Exam: NORMAL INSPECTION - Respiratory Exam Respiratory Exam: Decreased Breath Sounds - Cardiovascular Exam Cardiovascular Exam: +S1, +S2 - GI/Abdominal Exam GI & Abdominal Exam: Soft. 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 Mendoza previously
[2018-07-09 23:01] VITALS: O2SAT 97
[2018-07-10] MEDS: Albuterol-Ipratrop 3 mg / 0.5 (3 ml) UD IH SCH ×3 (01:12→14:28)
[2018-07-10] MEDS: Aztreonam 1 Gm in NS 100mL 100 ML IVPB SCH (05:31)
[2018-07-10 06:39] LABS: HEMOGLOBIN 9.9 g/dL (14.0-18.0); MEAN CELL VOLUME 92.7 fl (80.0-105.0); MEAN CORPUSCULAR HEMOGLOBIN 28.9 pg (25.0-35.0); MEAN CORPUSCULAR HGB CONC 31.1 g/dl (31.0-37.0); MEAN PLATELET VOLUME 10.5 fl (7.0-11.0); RBC 3.43 10^6/uL (3.5-6.1); RED CELL DISTRIBUTION WIDTH 13.2 % (11.5-14.5); WHITE BLOOD COUNT 12.1 10^3/uL (4.5-11.0)
[2018-07-10 06:49] LABS: ALBUMIN 3.7 g/dL (3.0-4.8); ALT/SGPT 43 U/L (7-56); AST/SGOT 39 U/L (17-59); BLOOD UREA NITROGEN 17 mg/dL (7-21); CALCIUM 9.3 mg/dL (8.4-10.5); GFR NON-AFRICAN AMERICAN > 60
[2018-07-10 07:47] VITALS: RESP 18; TEMP 98.2
[2018-07-10] MEDS: Metoprolol Succinate 50 mg XL Tab PO SCH (09:45)
[2018-07-10 09:50] VITALS: BP 120/66; PULSE 88
--- NOTE | 2018-07-10 10:12 | PN ---
DATE: 07/10/2018 SUBJECTIVE: The patient appears very comfortable this morning. He is not short of breath at rest. PHYSICAL EXAMINATION: VITALS: Temperature is 98.9, pulse 67, respirations 16, blood pressure 141/69. Oxygen saturation on room air is 97%. HEENT: Normocephalic, atraumatic. No JVD. CARDIOVASCULAR: Positive S1, S2. No S3 gallop. LUNGS: Improved breath sounds at the bases. No rhonchi or wheezing this morning. EXTREMITIES: The patient is status post bilateral [id number] amputations. GI: Abdomen is soft, nontender and nondistended. Bowel sounds are positive. SKIN: No acute rash. NEUROLOGIC: Exam limited at the present time. IMPRESSION: 1. Right upper lobe pneumonia. 2. Acute bronchitis. 3. Sepsis syndrome. 4. Anemia. PLAN: The patient appears very comfortable this morning. He is not short of breath at rest. He does state to feeling much better overall. On physical exam, his bronchospasm has resolved. In addition, the alveolar-arterial gradient has also resolved. I will continue with the current nebulizer treatments and aspiration precautions for now. I would continue with the antibiotic coverage as per Infectious Disease. Input by Dr. Mauro is noted. The temperatures have now fully resolved. Clinical status of the patient is significantly improved - compared to his initial presentation. However, given the above, the patient's overall status/prognosis appears very guarded/poor. I will discuss the above with Dr. Caraballo. Dutch Mendoza MD [facility]
--- NOTE | 2018-07-10 12:02 | DS ---
HISTORY OF PRESENT ILLNESS: I saw him resting comfortably in bed. He is doing much better. He feels much better. He is looking at me. He is eating only his food. He is clinically improved and told by Infectious Disease, they are going to stop the antibiotics today. He is stating he is getting p.o. antibiotics, we are going to discharge him home today. PHYSICAL EXAMINATION: VITAL SIGNS: He has a 98.2 temperature, 62 pulse, 100/56 blood pressure, 18 respiratory rate, 97% O2 sat on room air. HEENT: Head is atraumatic, normocephalic. HEART: Regular rate. LUNGS: Decreased breath sounds but clear. ABDOMEN: Soft, nontender. Positive bowel sounds. EXTREMITIES: Bilateral AKA. MEDICATIONS: He is going to be on DuoNebs, Ecotrin, Glucophage, Klonopin, Toprol and Zestril. LABORATORY DATA: He has a 12.1 white count, 9.9 hemoglobin, 31.8 hematocrit with 398 platelets. He has 140 sodium, potassium 4.9, BUN is 70, creatinine 0.5, GFR is greater than 60, sugar is 98, calcium is 9.3, total bili is 0.2, AST is 39, ALT is 43, alk phos 67, total protein 7.4. Micro was beta strep in the throat. He has been on good antibiotics as per Infectious Disease. I believe today is the last IV antibiotics and I could discharge him home. They should call me for house call or if they need anything. He was here for a sepsis picture, code sepsis, bilateral AKA, right lobe pneumonia. Rajendra Caraballo DO
--- NOTE | 2018-07-10 13:25 | CP.PCM.PN ---
Subjective - Date & Time of Evaluation Date of Evaluation: 07/10/18 Time of Evaluation: 08:40 - Subjective Subjective: Comfortable, no SOB at rest, no fevers. Objective - Vital Signs/Intake and Output Vital Signs (last 24 hours): Temp Pulse Resp BP Pulse Ox 98.2 F 67 20 160/73 H 100 07/09/18 14:00 07/09/18 14:00 07/09/18 14:00 07/09/18 14:00 07/09/18 14:00 Intake and Output: 07/09/18 07/09/18 06:59 18:59 Intake Total 1000 Output Total 0 Balance 1000 - Medications Medications: Current Medications Albuterol/Ipratropium (Duoneb 3 Mg/0.5 Mg (3 Ml) Ud) 3 ml IH [id number] [facility] Last Admin: 07/09/18 14:04 Dose: 3 ml Albuterol/Ipratropium (Duoneb 3 Mg/0.5 Mg (3 Ml) Ud) 3 ml IH Q2H PRN PRN Reason: Shortness of Breath Aspirin (Ecotrin) 81 mg PO DAILY [facility] Last Admin: 07/09/18 11:29 Dose: 81 mg Clonazepam (Klonopin) 0.5 mg PO DAILY [facility]; Protocol Last Admin: 07/09/18 10:29 Dose: 0.5 mg Aztreonam (Azactam 1 Gm) 100 mls @ 100 mls/hr IVPB Q8 [facility]; Protocol Stop: 07/12/18 14:01 Last Admin: 07/09/18 13:29 Dose: 100 mls/hr Vancomycin HCl (Vancomycin 1gm) 1 gm in 250 mls @ 167 mls/hr IVPB Q12H [facility]; Protocol Last Admin: 07/09/18 10:33 Dose: 167 mls/hr Lisinopril (Zestril) 10 mg PO DAILY [facility] Last Admin: 07/09/18 10:00 Dose: 10 mg Metformin HCl (Glucophage) 500 mg PO BID [facility] Last Admin: 07/09/18 10:29 Dose: 500 mg Metoprolol Succinate (Toprol Xl) 50 mg PO DAILY [facility] Last Admin: 07/09/18 10:30 Dose: 50 mg Oseltamivir Phosphate (Tamiflu Cap) 75 mg PO BID [facility]; Protocol Stop: 07/09/18 23:52 Last Admin: 07/09/18 10:30 Dose: 75 mg - Labs Labs: 07/09/18 06:30 07/09/18 06:30 - Constitutional Appears: Chronically Ill - Head Exam Head Exam: NORMAL INSPECTION - Respiratory Exam Respiratory Exam: Decreased Breath Sounds - Cardiovascular Exam Cardiovascular Exam: +S1, +S2 - GI/Abdominal Exam GI & Abdominal Exam: Soft. 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 Mendoza previously
== END 2018-07-10 17:24 | disposition home or self-care (01) | DRG 871 ==
LOC: ED 13:21 → OBSVTOIN 18:41 → ERH 18:41 → 5RNO 07-05 02:49
PROVIDERS: ADMIT Hospitalist; ATTEND Family Medicine
PROC: 3E0F7GC Introduction of Other Therapeutic Substance into Respiratory Tract, Via Natural or Artificial Opening (ICD-10-PCS; principal; 2018-07-07)
DX: A41.9 Sepsis, unspecified organism (principal); J18.1 Lobar pneumonia, unspecified organism; I69.351 Hemiplegia and hemiparesis following cerebral infarction affecting right dominant side; J20.9 Acute bronchitis, unspecified; I69.320 Aphasia following cerebral infarction; E11.51 Type 2 diabetes mellitus with diabetic peripheral angiopathy without gangrene; F03.90 Unspecified dementia, unspecified severity, without behavioral disturbance, psychotic disturbance, mood disturbance, and anxiety; I10 Essential (primary) hypertension; D64.9 Anemia, unspecified; Z79.82 Long term (current) use of aspirin; Z79.899 Other long term (current) drug therapy; Z89.611 Acquired absence of right leg above knee; Z89.612 Acquired absence of left leg above knee; Z88.0 Allergy status to penicillin